=== PATIENT | male | born 1990 | race African-American/Black ===

== ENCOUNTER 2020-04-27 09:02 | Emergency (ER) | payer MEDICAID ==
[2020-04-27 09:14] VITALS: BP 170/98
--- NOTE | 2020-04-27 10:05 | RADIOLOGY REPORT (SQ) ---
EXAM DESCRIPTION: ANKLE LEFT COMPLETE IMAGES COMPLETED DATE/TIME: 04/27/2020 9:50 am REASON FOR STUDY: left ankle pain COMPARISON: None. NUMBER OF VIEWS: Three views. TECHNIQUE: AP, lateral, and oblique without weight bearing radiographic images acquired of the left ankle. LIMITATIONS: None. FINDINGS: MINERALIZATION: Normal. BONES: No acute fracture or dislocation. No worrisome bone lesions. Mild degenerative changes are pre sent at the talonavicular joint. JOINTS: No effusions. SOFT TISSUES: There is mild soft tissue swelling about the ankle. No radiopaque foreign body. OTHER: No other significant finding. IMPRESSION: Mild soft tissue swelling about the ankle without underlying fracture. TECHNICAL DOCUMENTATION: JOB ID: [id number] 2010 [employer]- All Rights Reserved Reading location - IP/workstation name: [email or web address]
[2020-04-27] MEDS ORDERED: HYDROCODONE/ACETAMINOPHEN 5-325 MG TABLET PO ONE (10:20)
[2020-04-27] MEDS ORDERED: IBUPROFEN 600 MG TABLET PO ONE (10:20)
--- NOTE | 2020-04-27 10:33 | ER Document Report ---
Entered by GLEN LIU SCRIBE 04/27/20 1008 Acting as scribe for:ALKA CASANOVA MD ED Extremity Problem, Lower - General Chief Complaint: Ankle Pain Stated Complaint: LEFT ANKLE PAIN Time Seen by Provider: 04/27/20 09:50 Primary Care Provider: JESS LEAVITT JR, MD [Primary Care Provider] - Follow up as needed Mode of Arrival: Ambulatory Information source: Patient Notes: This 29 year old male patient presents to the emergency department today with left ankle pain. Patient sleep walks frequently and today he was sleep walking and he rolled his left ankle. Patient denies any other injuries. 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 Review of Systems - Review of Systems Constitutional: No symptoms reported EENT: No symptoms reported Cardiovascular: No symptoms reported Respiratory: No symptoms reported Gastrointestinal: No symptoms reported Genitourinary: No symptoms reported Male Genitourinary: No symptoms reported Musculoskeletal: See HPI, Joint pain - left ankle Skin: No symptoms reported Hematologic/Lymphatic: No symptoms reported Neurological/Psychological: No symptoms reported -: Yes All other systems reviewed and negative Physical Exam - Vital signs Vitals: Temp Pulse Resp BP Pulse Ox 98.5 F 108 H 16 170/98 H 96 04/27/20 09:10 04/27/20 09:10 04/27/20 09:10 04/27/20 09:10 04/27/20 09:10 - General General appearance: Appears well, Alert In distress: None - HEENT Head: Normocephalic, Atraumatic Eyes: Normal - Respiratory Respiratory status: No respiratory distress - Cardiovascular Rhythm: Regular - Abdominal Inspection: Normal Distension: No distension - Extremities General upper extremity: Normal inspection General lower extremity: Other - Left ankle is most tender to palpate just anterior and medial to the lateral malleolus. There is minimal tenderness is across the rest of the anterior ankle and no tenderness to the medial ankle. There is no tenderness to the proximal fifth metatarsal. - Neurological Neuro grossly intact: Yes Cognition: Normal - Psychological Associated symptoms: Normal affect, Normal mood - Skin Skin Temperature: Warm Skin Moisture: Dry Skin Color: Normal Course - Re-evaluation Re-evalutation: 04/27/20 13:51 The posterior splint was placed on the left ankle by the PCT. Patient was fitted with crutches. Splint fits well, provides stability and prevents the ankle from moving. He does ambulate adequately with crutches. - Vital Signs Vital signs: Temp Pulse Resp BP Pulse Ox 98.5 F 108 H 16 170/98 H 96 04/27/20 09:10 04/27/20 09:10 04/27/20 09:10 04/27/20 09:10 04/27/20 09:10 - Diagnostic Test Radiology reviewed: Image reviewed, Reports reviewed - Left ankle x-ray shows mild soft tissue swelling without fracture. Discharge - Discharge Clinical Impression: Sprain of left ankle Qualifiers: Encounter type: initial encounter Involved ligament of ankle: unspecified ligament Qualified Code(s): S93.402A - Sprain of unspecified ligament of left ankle, initial encounter Condition: Stable Disposition: HOME, SELF-CARE Additional Instructions: Sprained Ankle Your sprained ankle results from stretching or tearing of the ligaments which support the ankle. This usually results from twisting the foot inward and under. The ligaments will require time and protection in order to heal properly. Many ankle sprains are quite disabling, and should be taken se riously. The usual treatment for an ankle sprain is cold packs; protection with tape, splints, or wraps; elevation; and staying off the ankle for at least a day. As the ankle improves, you can walk IF it's not painful to bear weight. Sports are best postponed until healing is complete. More serious sprains usually require strengthening exercises after early healing. Your physician has assessed the seriousness of the ligament injury to your ankle. However, the treatment may change, depending on how your ankle progresses. If further exams were recommended, it is important that you follow through. Call the doctor if your foot becomes numb, painful, or severely swollen. Keep the splint clean and dry. Elevate your foot above your heart as much as possible for the next few days. Use ice packs on the most painful area of your ankle off and on for the next 2 to 3 days. Take Tylenol and ibuprofen for pain if needed. Use the crutches to avoid weight-bearing for the next few days. When the ankle feels okay to stand and weight-bear, then get a reusable type ankle splint from [facility] to provide support until your ankle fully heals. Follow-up with your primary care provider if not improving. RETURN TO THE EMERGENCY ROOM IF ANY NEW OR WORSENING SYMPTOMS. Referrals: JESS LEAVITT JR, MD [Primary Care Provider] - Follow up as needed I personally performed the services described in the documentation, reviewed and edited the documentation which was dictated to the scribe in my presence, and it accurately records my words and actions.
== END 2020-04-27 10:43 | disposition home or self-care (01) ==
LOC: ER 09:02
DX: S93.402A Sprain of unspecified ligament of left ankle, initial encounter (principal); M25.572 Pain in left ankle and joints of left foot; X50.9XXA Other and unspecified overexertion or strenuous movements or postures, initial encounter; Y93.89 Activity, other specified; F17.210 Nicotine dependence, cigarettes, uncomplicated; I10 Essential (primary) hypertension
CPT/HCPCS: 99283; 73610; 29515; J3490

== ENCOUNTER 2020-09-29 11:45 | Inpatient (IN) | payer MEDICAID ==
[2020-09-29] MEDS ORDERED: ACETAMINOPHEN 325 MG TABLET PO ONE (12:53)
--- NOTE | 2020-09-29 12:56 | ER Document Report ---
ED Medical Screen (RME) - General Chief Complaint: Fever Stated Complaint: FEVER,COUGH Time Seen by Provider: 09/29/20 12:53 Primary Care Provider: JESS LEAVITT JR, MD [Primary Care Provider] - Follow up as needed Notes: 30-year-old male with symptoms including cough, fevers, chills, shortness of breath. Exposed people who are positive for COVID-19, has not been tested yet. Past medical history of obesity and sleep apnea, denies medical history otherwise. 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 We placed him on oxygen and he increased to 91% on 4 L. I have greeted and performed a rapid initial assessment of this patient. A comprehensive ED assessment and evaluation of the patient, analysis of test results and completion of the medical decision making process will be conducted by additional ED providers. Doctor's Discharge - Discharge Referrals: JESS LEAVITT JR, MD [Primary Care Provider] - Follow up as needed
[2020-09-29 13:23] LABS: VENOUS BLOOD BASE EXCESS 7.3 mmol/L; VENOUS BLOOD HCO3 33.8 mmol/L (20-32); VENOUS BLOOD PCO2 53.9 mmHg (35-63); VENOUS BLOOD PH 7.42 (7.30-7.42)
[2020-09-29 13:25] LABS: ABSOLUTE BASOPHILS # (AUTO) 0.1 10^3/uL (0.0-0.2); ABSOLUTE LYMPHOCYTES (AUTO) 1.3 10^3/uL (0.5-4.7); ABSOLUTE MONOCYTES (AUTO) 0.5 10^3/uL (0.1-1.4); ABSOLUTE NEUT (AUTO) 3.8 10^3/uL (1.7-8.2); BASOPHILS % (AUTO) 1.1 % (0-2); HEMATOCRIT 47.7 % (37.9-51.0); HEMOGLOBIN 16.2 g/dL (13.5-17.0); MEAN CORPUSCULAR HEMOGLOBIN 31.6 pg (27.0-33.4); MEAN CORPUSCULAR VOLUME 93 fl (80-97); MONOCYTES % (AUTO) 8.1 % (3-13); PLATELET COUNT 279 10^3/uL (150-450); RED BLOOD COUNT 5.14 10^6/uL (4.35-5.55); RED CELL DISTRIBUTION WIDTH 13.2 % (11.5-14.0); SEGMENTED NEUTROPHILS % (AUTO) 67.8 % (42-78); TOTAL CELLS COUNTED % (AUTO) 100 %; WHITE BLOOD COUNT 5.6 10^3/uL (4.0-10.5)
[2020-09-29] MEDS ORDERED: DEXAMETHASONE SOD PHOS INJ 10 MG/1 ML VIAL IV ONE (13:40)
[2020-09-29 13:45] LABS: ALBUMIN 3.9 g/dL (3.5-5.0); ALKALINE PHOSPHATASE 70 U/L (38-126); ANION GAP 5 (5-19); ASPARTATE AMINO TRANSFERASE 104 U/L (17-59); BILIRUBIN,DIRECT 0.3 mg/dL (0.0-0.4); BILIRUBIN,TOTAL 0.7 mg/dL (0.2-1.3); BLOOD UREA NITROGEN 7 mg/dL (7-20); CALCIUM 8.4 mg/dL (8.4-10.2); CARBON DIOXIDE 36 mmol/L (22-30); CHLORIDE 93 mmol/L (98-107); GLUCOSE 136 mg/dL (75-110); POTASSIUM 4.1 mmol/L (3.6-5.0); TOTAL PROTEIN 7.6 g/dL (6.3-8.2)
--- NOTE | 2020-09-29 13:57 | RADIOLOGY REPORT (SQ) ---
EXAM DESCRIPTION: CHEST SINGLE VIEW IMAGES COMPLETED DATE/TIME: 09/29/2020 1:49 pm REASON FOR STUDY: hypoxia, fever COMPARISON: None. EXAM PARAMETERS: NUMBER OF VIEWS: One view. TECHNIQUE: Single frontal radiographic view of the chest acquired. RADIATION DOSE: NA LIMITATIONS: None. FINDINGS: LUNGS AND PLEURA: Bibasilar infiltrates consistent with pneumonia. There is patchy airspa ce disease in the right perihilar region as well. MEDIASTINUM AND HILAR STRUCTURES: No masses. Contour normal. HEART AND VASCULAR STRUCTURES: Heart normal in size. Normal vasculature. BONES: No acute findings. HARDWARE: None in the chest. OTHER: No other significant finding. IMPRESSION: Patchy bilateral airspace disease consistent with multifocal pneumonia. Findings are douglas spicious for viral pneumonitis. COMMENT: Commonly reported imaging features of COVID-19 pneumonia are present. Other processes suc h as influenza pneumonia and organizing pneumonia, as can be seen with drug toxicity and connective t issue disease, can cause a similar imaging pattern. [facility] TECHNICAL DOCUMENTATION: JOB ID: [id number] [employer]- All Rights Reserved Reading location - IP/workstation name: [email or web address]
[2020-09-29] MEDS ORDERED: CEFTRIAXONE 1 GM/D5W RTU 1 GM/50 ML RTUPB IV ONE (14:23)
[2020-09-29] MEDS ORDERED: AZITHROMYCIN INJ 500 MG VIAL IV ONE (14:24)
--- NOTE | 2020-09-29 14:29 | ER Document Report ---
ED General - General Chief Complaint: Shortness Of Breath Stated Complaint: FEVER,COUGH Time Seen by Provider: 09/29/20 12:53 Notes: Patient is a 30-year-old male who comes emergency department for sick symptoms including fevers, chills, cough, shortness of breath. He also has had some intermittent diarrhea. He denies abdominal pain, vomiting, chest pain, headache. Patient was exposed to his who was positive for COVID-19 over the past 2 weeks. Patient has not been tested for COVID-19. Patient denies smoking. Past medical history includes obesity, sleep apnea on CPAP, hypertension, congenital hip dysplasia and surgical repair. He denies medical history otherwise. He denies recreational drugs. 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 - Immunizations Immunizations up to date: Yes Hx Diphtheria, Pertussis, Tetanus Vaccination: Yes Review of Systems - Review of Systems Constitutional: See HPI EENT: No symptoms reported Cardiovascular: No symptoms reported Respiratory: See HPI Gastrointestinal: No symptoms reported Genitourinary: No symptoms reported Male Genitourinary: No symptoms reported Musculoskeletal: No symptoms reported Skin: No symptoms reported Hematologic/Lymphatic: No symptoms reported Neurological/Psychological: No symptoms reported Physical Exam - Vital signs Vitals: Pulse Resp BP Pulse Ox 124 H 30 H 130/59 H 75 L 09/29/20 12:26 09/29/20 12:26 09/29/20 12:26 09/29/20 12:26 - Notes Notes: GENERAL: Alert, interacts well. HEAD: Normocephalic, atraumatic. EYES: Pupils equal, round, and reactive to light. Extraocular movements intact. ENT: Oral mucosa moist, tongue midline. Oropharynx unremarkable. Airway patent. NECK: Full range of motion. Supple. Trachea midline. No lymphadenopathy. LUNGS: Decreased breath sounds throughout, no overt rales, wheezes, or rhonchi. No respiratory distress. HEART: Regular rate and rhythm. No murmur ABDOMEN: Soft, non-tender. Non-distended. EXTREMITIES: Moves all 4 extremities spontaneously. No edema, normal radial and dorsalis pedis pulses bilaterally. No cyanosis. BACK: no cervical, thoracic, lumbar midline tenderness. No saddle anesthesia, normal distal neurovascular exam. Moves all extremities in full range of motion. NEUROLOGICAL: Alert and oriented x3. Normal speech. Cranial nerves II through X II grossly intact. Strength 5/5 in all extremities. PSYCH: Normal affect, normal mood. SKIN: Warm, dry, normal turgor. No rashes or lesions noted. Course - Re-evaluation Re-evalutation: I saw the patient in triage, patient was noted to be febrile, tachycardic, hypoxic although generally well-appearing otherwise. He is able to speak in full sentences without signs of respiratory distress. Eyes clinical suspicion based on his exposure is COVID-19 pneumonia. Patient was immediately placed in room, placed on 4 L nasal cannula and monitoring. He was given Tylenol. Tachycardia improved, hypoxia resolved, on reevaluation patient is well- appearing and alert. Chest x-ray at bedside appears to show multifocal pneumonia. CBC, chemistry unremarkable, urinalysis unremarkable, lactic acid is not elevated. Patient is given given Decadron, started on antibiotics. He is maintaining good oxygen saturation on 4 L nasal cannula unless he falls asleep, he has significant sleep apnea. Because of patient's oxygen requirement with multifocal pneumonia patient will require hospitalization. Discussed with patient, he states understanding and agreement. Discussed with Dr. Jackson, hospitalist, patient accepted full admission. - Vital Signs Vital signs: Temp Pulse Resp BP Pulse Ox 101 F H 96 34 H 106/78 91 L 09/29/20 17:24 09/29/20 17:24 09/29/20 17:24 09/29/20 17:05 09/29/20 17:24 - Laboratory Results Result Diagrams: 09/29/20 12:56 09/29/20 12:56 Laboratory Results Interpreted: 09/29/20 09/29/20 09/29/20 12:56 12:56 12:56 Fibrinogen 506 H D-Dimer 1.03 H VBG HCO3 33.8 H Sodium 134.2 L Chloride 93 L Carbon Dioxide 36 H Glucose 136 H AST 104 H Lactate Dehydrogenase C-Reactive Protein 09/29/20 12:56 Fibrinogen D-Dimer VBG HCO3 Sodium Chloride Carbon Dioxide Glucose AST Lactate Dehydrogenase 464 H C-Reactive Protein 34.6 H Critical Laboratory Results Reviewed: No Critical Results - Radiology Results Critical Radiology Results Reviewed: No Critical Results - EKG Interpretation by Me Additional EKG results interpreted by me: EKG shows sinus tachycardia at a rate of 119, normal axis, no T wave inversions or ST segment changes in consecutive leads, QTC 451. Discharge - Discharge Clinical Impression: Pneumonia due to COVID-19 virus, Hypoxia, Morbid obesity Fever Qualifiers: Fever type: unspecified Qualified Code(s): R50.9 - Fever, unspecified Condition: Stable Disposition: ADMITTED INPATIENT Admitting Provider: Demian (Hospitalist) Unit Admitted: Medical Floor
--- NOTE | 2020-09-29 14:49 | EKG REPORT ---
SEVERITY:- ABNORMAL ECG - SINUS TACHYCARDIA LEFT ATRIAL ABNORMALITY : Confirmed by: Deepa White 29-Sep-2020 14:48:52
[2020-09-29] MEDS ORDERED: OXYCODONE-ACETAMINOPHEN 5-325 MG TABLET PO PRN (16:16)
[2020-09-29] MEDS ORDERED: ZOLPIDEM TARTRATE 5 MG TABLET PO PRN (16:16)
[2020-09-29] MEDS ORDERED: PROMETHAZINE HCL INJ 25 MG/1 ML VIAL IV PRN (16:16)
[2020-09-29] MEDS ORDERED: ONDANSETRON 4 MG TAB.RAPDIS PO PRN (16:16)
[2020-09-29] MEDS ORDERED: MAGNESIUM HYDROXIDE SUSP 30 ML UDCUP PO PRN (16:16)
[2020-09-29] MEDS ORDERED: ONDANSETRON HCL INJ/PF 4 MG/2 ML SDV IV PRN (16:16)
[2020-09-29] MEDS ORDERED: IPRATROPIUM/ALBUTEROL 0.5-2.5 MG/3 ML AMPUL NEB PRN (16:16)
[2020-09-29] MEDS ORDERED: LABETALOL HCL INJ 20 MG/4 ML DISP.SYRIN IV PRN (16:26)
[2020-09-29 16:44] LABS: INTERNATIONAL RATION (INR) 1.04; PROTHROMBIN TIME 13.8 SEC (11.4-15.4)
[2020-09-29 16:45] LABS: FIBRINOGEN 506 mg/dL (209-497); PARTIAL THROMBOPLASTIN TIME 35.3 SEC (23.5-35.8)
[2020-09-29 16:48] LABS: D-DIMER 1.03 ug/mL (0.00-0.50)
[2020-09-29 16:53] LABS: C-REACTIVE PROTEIN 34.6 mg/L (<10.0)
--- NOTE | 2020-09-29 17:37 | PDOC H&P ---
History of Present Illness Admission Date/PCP: 09/29/20 15:52 SHAHRIAR CLIFFORD MD History of Present Illness: YOLIS NOLAN is a 30 year old male past medical history of morbid obesity, tobacco abuse, obstructive sleep apnea presenting to ED complaining of fever, chills, cough, shortness of breath of 1 week duration, possible exposure is his who had COVID-19 2 weeks ago, denies any headache, nausea, vomiting, diarrhea, chest pain, abdominal pain, constipation, loss of smell, loss of taste, or any urinary symptoms. In ED was noted to be hypoxic on room air, with chest x-ray showing patchy bilateral airspace disease consistent with multifocal pneumonia, COVID-19 serology positive. Hospitalist consulted for admission. 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 Social History Smoking Status: Current Every Day Smoker Family History Family History: Reviewed & Not Pertinent Parental Family History Reviewed: Yes Children Family History Reviewed: Yes Sibling(s) Family History Reviewed.: Yes Medication/Allergy Allergies/Adverse Reactions: No Known Allergies Allergy (Verified 09/29/20 13:06) Review of Systems Review of Systems: as per hpi Physical Exam Vital Signs: Temp Pulse Resp BP Pulse Ox 103 F H 126 H 29 H 149/86 H 92 09/29/20 13:06 09/29/20 13:06 09/29/20 15:00 09/29/20 15:00 09/29/20 15:00 Intake & Output 09/28/20 09/29/20 09/30/20 06:59 06:59 06:59 Intake Total 50 Balance 50 Weight 182.3 kg General appearance: PRESENT: morbidly obese Head exam: PRESENT: atraumatic, normocephalic Neck exam: ABSENT: carotid bruit, JVD, lymphadenopathy, thyromegaly Respiratory exam: PRESENT: crackles, symmetrical. ABSENT: rales, rhonchi, wheezes GI/Abdominal exam: PRESENT: normal bowel sounds, soft. ABSENT: distended, guarding, mass, organolmegaly, rebound, tenderness Extremities exam: PRESENT: full ROM. ABSENT: calf tenderness, clubbing, pedal edema Neurological exam: PRESENT: alert, awake, oriented to person, oriented to place, oriented to time, oriented to situation, CN II-XII grossly intact. ABSENT: motor sensory deficit Results Laboratory Results: 09/29/20 12:56 09/29/20 12:56 09/29/20 09/29/20 09/29/20 12:56 12:56 12:56 WBC 5.6 RBC 5.14 Hgb 16.2 Hct 47.7 MCV 93 MCH 31.6 MCHC 34.0 RDW 13.2 Plt Count 279 Seg Neutrophils % 67.8 VBG pH 7.42 VBG pCO2 53.9 VBG HCO3 33.8 H VBG Base Excess 7.3 Sodium 134.2 L Potassium 4.1 Chloride 93 L Carbon Dioxide 36 H Anion Gap 5 BUN 7 Creatinine 1.13 Est GFR ( Amer) > 60 Glucose 136 H Lactic Acid Calcium 8.4 Ferritin Total Bilirubin 0.7 AST 104 H Alkaline Phosphatase 70 C-Reactive Protein Total Protein 7.6 Albumin 3.9 09/29/20 09/29/20 09/29/20 12:56 12:56 15:40 WBC RBC Hgb Hct MCV MCH MCHC RDW Plt Count Seg Neutrophils % VBG pH VBG pCO2 VBG HCO3 VBG Base Excess Sodium Potassium Chloride Carbon Dioxide Anion Gap BUN Creatinine Est GFR ( Amer) Glucose Lactic Acid 1.2 Cancelled Calcium Ferritin 244.00 Total Bilirubin AST Alkaline Phosphatase C-Reactive Protein 34.6 H Total Protein Albumin Impressions: Chest X-Ray 09/29/20 12:54 IMPRESSION: Patchy bilateral airspace disease consistent with multifocal pneumonia. Findings are suspicious for viral pneumonitis. Assessment and Plan - Diagnosis (1) Acute respiratory failure with hypoxia Is this a current diagnosis for this admission?: Yes Plan: Most likely due to COVID-19 pneumonia. Complaining of shortness of breath, fever and chills. Noted to be hypoxic on room air on presentation. Chest x-ray positive for multifocal pneumonia. Serology positive for COVID-19. Admit to IMCU, supplemental oxygen, duo nebs, as needed BiPAP, empiric broad- spectrum IV antibiotics, dexamethasone, weight-based anticoagulation, incentive spirometry, flutter valve, ivermectin, remdesivir. Patient refuses convalescent plasma. (2) Pneumonia due to COVID-19 virus Is this a current diagnosis for this admission?: Yes Plan: Plan as per #1. (3) Obstructive sleep apnea Is this a current diagnosis for this admission?: Yes Plan: Uses home CPAP. Nocturnal CPAP. Weight loss recommended. (4) Tobacco abuse Is this a current diagnosis for this admission?: Yes Plan: Current daily smoker. Counseled on quitting. NicoDerm patch will be provided. (5) Morbid obesity Is this a current diagnosis for this admission?: Yes Plan: BMI 54.5. Diet and lifestyle modification recommended. Will obtain TSH. Likely candidate for bariatric intervention. - Time Time Spent with patient: 35 or more minutes Anticipated Discharge Disposition: Home, Self Care Anticipated Discharge Timeframe: within 72 hours
[2020-09-29] MEDS: ASCORBIC ACID 500 MG TABLET PO SCH (18:03)
[2020-09-29] MEDS: ACETAMINOPHEN 325 MG TABLET PO PRN (18:03)
[2020-09-29] MEDS: DOCUSATE SODIUM 100 MG CAPSULE PO SCH (18:03)
[2020-09-29] MEDS: ASPIRIN 81 MG TABLET, ENT COATED PO SCH (18:05)
[2020-09-29] MEDS: CHOLECALCIFEROL (D3) 1,000 UNIT (25 MCG) TABLET PO SCH (18:05)
[2020-09-29] MEDS: ZINC SULFATE 220 MG CAPSULE PO SCH (18:06)
[2020-09-30] MEDS: ENOXAPARIN SODIUM INJ 150 MG/1 ML DISP.SYRIN SUBCUT SCH ×4 (00:06→22:01)
[2020-09-30] MEDS: IVERMECTIN 3 MG TABLET PO SCH (00:06)
[2020-09-30] MEDS: FAMOTIDINE 20 MG TABLET PO SCH ×3 (00:06→22:01)
[2020-09-30 05:15] LABS: ABSOLUTE LYMPHOCYTES (AUTO) 0.9 10^3/uL (0.5-4.7); ABSOLUTE MONOCYTES (AUTO) 0.5 10^3/uL (0.1-1.4); ABSOLUTE NEUT (AUTO) 2.8 10^3/uL (1.7-8.2); BASOPHILS % (AUTO) 0.6 % (0-2); HEMATOCRIT 46.1 % (37.9-51.0); HEMOGLOBIN 15.6 g/dL (13.5-17.0); LYMPHOCYTES % (AUTO) 21.8 % (13-45); MEAN CORPUSCULAR HEMOGLOBIN 31.3 pg (27.0-33.4); MEAN CORPUSCULAR HGB CONC 33.7 g/dL (32.0-36.0); MEAN CORPUSCULAR VOLUME 93 fl (80-97); MONOCYTES % (AUTO) 11.5 % (3-13); PLATELET COUNT 304 10^3/uL (150-450); RED BLOOD COUNT 4.97 10^6/uL (4.35-5.55); RED CELL DISTRIBUTION WIDTH 13.5 % (11.5-14.0); SEGMENTED NEUTROPHILS % (AUTO) 66.1 % (42-78); TOTAL CELLS COUNTED % (AUTO) 100 %; WHITE BLOOD COUNT 4.3 10^3/uL (4.0-10.5)
[2020-09-30 05:29] LABS: ALBUMIN 3.7 g/dL (3.5-5.0); ALKALINE PHOSPHATASE 60 U/L (38-126); ANION GAP 7 (5-19); ASPARTATE AMINO TRANSFERASE 92 U/L (17-59); BILIRUBIN,DIRECT 0.3 mg/dL (0.0-0.4); BILIRUBIN,TOTAL 0.5 mg/dL (0.2-1.3); BLOOD UREA NITROGEN 12 mg/dL (7-20); CALCIUM 8.2 mg/dL (8.4-10.2); CARBON DIOXIDE 34 mmol/L (22-30); CHLORIDE 94 mmol/L (98-107); GLUCOSE 137 mg/dL (75-110); POTASSIUM 4.4 mmol/L (3.6-5.0); TOTAL PROTEIN 7.2 g/dL (6.3-8.2)
[2020-09-30] MEDS ORDERED: INFLUENZA QUAD (6MOS+) 2020-21 VAC 0.5 ML SYR IM ONE (08:00)
[2020-09-30] MEDS: ACETAMINOPHEN 325 MG TABLET PO PRN ×2 (08:12→17:19)
--- NOTE | 2020-09-30 11:44 | PDOC PROGRESS REPORT ---
Subjective Date:: 09/30/20 Subjective:: YOLIS NOLAN is a 30 year old male past medical history of morbid obesity, tobacco abuse, obstructive sleep apnea presenting to ED complaining of fever, chills, cough, shortness of breath of 1 week duration, possible exposure is his who had COVID-19 2 weeks ago, denies any headache, nausea, vomiting, diarrhea, chest pain, abdominal pain, constipation, loss of smell, loss of taste, or any urinary symptoms. In ED was noted to be hypoxic on room air, with chest x-ray showing patchy bilateral airspace disease consistent with multifocal pneumonia, COVID-19 serology positive. Hospitalist consulted for admission. 09/30/2020. No acute events overnight. Unfortunately patient not very compliant with his breathing treatment, refused to wear CPAP overnight, this morning on nasal cannula in no apparent distress, still complaining of shortness of breath, has not had any fever, denies any chest pain, nausea, vomiting, diarrhea, constipation. Reason For Visit: ACUTE RESPIRATORY FAILURE WITH HYPOXIA,COVID 19 Physical Exam Vital Signs: Temp Pulse Resp BP Pulse Ox 99.1 F 96 15 138/70 H 92 09/30/20 03:44 09/30/20 07:00 09/30/20 03:47 09/30/20 03:44 09/30/20 03:47 Intake & Output 09/29/20 09/30/20 10/01/20 06:59 06:59 06:59 Intake Total 2340 Output Total 425 Balance 1915 Weight 186.2 kg General appearance: PRESENT: no acute distress, morbidly obese, well-developed, well-nourished Head exam: PRESENT: atraumatic, normocephalic Respiratory exam: PRESENT: clear to auscultation ophelia, decreased breath sounds, other - Diminished air entry bilaterally. ABSENT: rales, rhonchi, wheezes Cardiovascular exam: PRESENT: RRR. ABSENT: diastolic murmur, rubs, systolic murmur GI/Abdominal exam: PRESENT: normal bowel sounds, soft. ABSENT: distended, guarding, mass, organolmegaly, rebound, tenderness Neurological exam: PRESENT: alert, awake, oriented to person, oriented to place, oriented to time, oriented to situation, CN II-XII grossly intact. ABSENT: motor sensory deficit Results Laboratory Results: 09/30/20 04:07 09/30/20 04:07 09/29/20 09/29/20 09/29/20 12:56 12:56 12:56 WBC 5.6 RBC 5.14 Hgb 16.2 Hct 47.7 MCV 93 MCH 31.6 MCHC 34.0 RDW 13.2 Plt Count 279 Seg Neutrophils % 67.8 VBG pH 7.42 VBG pCO2 53.9 VBG HCO3 33.8 H VBG Base Excess 7.3 Sodium 134.2 L Potassium 4.1 Chloride 93 L Carbon Dioxide 36 H Anion Gap 5 BUN 7 Creatinine 1.13 Est GFR ( Amer) > 60 Glucose 136 H Lactic Acid Calcium 8.4 Ferritin Total Bilirubin 0.7 AST 104 H Alkaline Phosphatase 70 C-Reactive Protein Total Protein 7.6 Albumin 3.9 Blood Type Antibody Screen 09/29/20 09/29/20 09/29/20 12:56 12:56 15:40 WBC RBC Hgb Hct MCV MCH MCHC RDW Plt Count Seg Neutrophils % VBG pH VBG pCO2 VBG HCO3 VBG Base Excess Sodium Potassium Chloride Carbon Dioxide Anion Gap BUN Creatinine Est GFR ( Amer) Glucose Lactic Acid 1.2 Cancelled Calcium Ferritin 244.00 Total Bilirubin AST Alkaline Phosphatase C-Reactive Protein 34.6 H Total Protein Albumin Blood Type Antibody Screen 09/29/20 09/29/20 09/29/20 18:30 18:30 21:53 WBC RBC Hgb Hct MCV MCH MCHC RDW Plt Count Seg Neutrophils % VBG pH VBG pCO2 VBG HCO3 VBG Base Excess Sodium Potassium Chloride Carbon Dioxide Anion Gap BUN Creatinine Est GFR ( Amer) Glucose Lactic Acid 1.6 2.1 Calcium Ferritin Total Bilirubin AST Alkaline Phosphatase C-Reactive Protein Total Protein Albumin Blood Type O POSITIVE Antibody Screen NEGATIVE 09/30/20 09/30/20 04:07 04:07 WBC 4.3 RBC 4.97 Hgb 15.6 Hct 46.1 MCV 93 MCH 31.3 MCHC 33.7 RDW 13.5 Plt Count 304 Seg Neutrophils % 66.1 VBG pH VBG pCO2 VBG HCO3 VBG Base Excess Sodium 134.7 L Potassium 4.4 Chloride 94 L Carbon Dioxide 34 H Anion Gap 7 BUN 12 Creatinine 1.00 Est GFR ( Amer) > 60 Glucose 137 H Lactic Acid Calcium 8.2 L Ferritin Total Bilirubin 0.5 AST 92 H Alkaline Phosphatase 60 C-Reactive Protein Total Protein 7.2 Albumin 3.7 Blood Type Antibody Screen Impressions: Chest X-Ray 09/29/20 12:54 IMPRESSION: Patchy bilateral airspace disease consistent with multifocal pneumonia. Findings are suspicious for viral pneumonitis. Assessment and Plan - Diagnosis (1) Acute respiratory failure with hypoxia Is this a current diagnosis for this admission?: Yes Plan: Improving. SPO2 WNL on 3 L nasal cannula. Most likely due to COVID-19 pneumonia. Complaining of shortness of breath, fever and chills on presentation. Noted to be hypoxic on room air on presentation. Chest x-ray positive for multifocal pneumonia. Serology positive for COVID-19. Continue supplemental oxygen, duo nebs, as needed BiPAP. Continue weight-based anticoagulation, incentive spirometry, flutter valve. Day 2 IV ceftriaxone. Day 2 IV azithromycin. Day 2 p.o. dexamethasone. Doses 1/2 ivermectin. Patient refused convalescent plasma. (2) Pneumonia due to COVID-19 virus Is this a current diagnosis for this admission?: Yes Plan: Plan as per #1. (3) Obstructive sleep apnea Is this a current diagnosis for this admission?: Yes Plan: Uses home CPAP. Nocturnal CPAP. Weight loss recommended. (4) Tobacco abuse Is this a current diagnosis for this admission?: Yes Plan: Current daily smoker. Counseled on quitting. NicoDerm patch will be provided. (5) Morbid obesity Is this a current diagnosis for this admission?: Yes Plan: BMI 54.5. Diet and lifestyle modification recommended. Will obtain TSH. Likely candidate for bariatric intervention. - Time Time Spent with patient: 35 or more minutes Anticipated Discharge Disposition: Home, Self Care Anticipated Discharge Timeframe: within 48 hours
[2020-09-30] MEDS: CEFTRIAXONE 1 GM/D5W RTU 1 GM/50 ML RTUPB IV SCH (12:19)
[2020-09-30] MEDS: DOCUSATE SODIUM 100 MG CAPSULE PO SCH ×3 (12:20→17:19)
[2020-09-30] MEDS: AZITHROMYCIN 250 MG TABLET PO SCH (12:20)
[2020-09-30] MEDS: CHOLECALCIFEROL (D3) 1,000 UNIT (25 MCG) TABLET PO SCH (12:20)
[2020-09-30] MEDS: DEXAMETHASONE SOD PHOS INJ 10 MG/1 ML VIAL IV SCH (12:20)
[2020-09-30] MEDS: ASCORBIC ACID 500 MG TABLET PO SCH ×2 (12:20→17:19)
[2020-09-30] MEDS: ASPIRIN 81 MG TABLET, ENT COATED PO SCH (12:20)
[2020-09-30] MEDS: ZINC SULFATE 220 MG CAPSULE PO SCH (12:21)
[2020-09-30 19:36] LABS: APPEARANCE,URINE CLEAR; BILIRUBIN,URINE NEGATIVE (NEGATIVE); COLOR,URINE YELLOW; GLUCOSE, URINE NEGATIVE (NEGATIVE); KETONES,URINE NEGATIVE (NEGATIVE); PROTEIN,URINE 100 mg/dL (NEGATIVE); URINE SPECIFIC GRAVITY 1.012; UROBILINOGEN,URINE NEGATIVE mg/dL (<2.0)
[2020-10-01 06:25] LABS: HEMATOCRIT 42.1 % (37.9-51.0); HEMOGLOBIN 14.4 g/dL (13.5-17.0); MEAN CORPUSCULAR HEMOGLOBIN 32.1 pg (27.0-33.4); MEAN CORPUSCULAR HGB CONC 34.3 g/dL (32.0-36.0); MEAN CORPUSCULAR VOLUME 93 fl (80-97); PLATELET COUNT 329 10^3/uL (150-450); RED CELL DISTRIBUTION WIDTH 13.7 % (11.5-14.0); WHITE BLOOD COUNT 5.3 10^3/uL (4.0-10.5)
[2020-10-01 07:04] LABS: ALBUMIN 3.5 g/dL (3.5-5.0); ALKALINE PHOSPHATASE 52 U/L (38-126); ASPARTATE AMINO TRANSFERASE 78 U/L (17-59); BILIRUBIN,DIRECT 0.3 mg/dL (0.0-0.4); BILIRUBIN,TOTAL 0.5 mg/dL (0.2-1.3); BLOOD UREA NITROGEN 11 mg/dL (7-20); CALCIUM 7.9 mg/dL (8.4-10.2); CARBON DIOXIDE 38 mmol/L (22-30); GLUCOSE 100 mg/dL (75-110)
[2020-10-01 07:06] LABS: POTASSIUM 3.8 mmol/L (3.6-5.0)
[2020-10-01 07:10] LABS: ANION GAP 5 (5-19); CHLORIDE 92 mmol/L (98-107)
[2020-10-01 08:24] LABS: APPEARANCE,URINE CLEAR; BILIRUBIN,URINE NEGATIVE (NEGATIVE); COLOR,URINE YELLOW; GLUCOSE, URINE NEGATIVE (NEGATIVE); KETONES,URINE NEGATIVE (NEGATIVE); LEUKOCYTE ESTERASE,URINE NEGATIVE (NEGATIVE); NITRITE,URINE NEGATIVE (NEGATIVE); PROTEIN,URINE 100 mg/dL (NEGATIVE)
[2020-10-01] MEDS: ACETAMINOPHEN 325 MG TABLET PO PRN ×2 (08:51→18:07)
[2020-10-01] MEDS ORDERED: DEXTROSE 40% GEL 15 GM TUBE PO PRN ×2 (09:39)
[2020-10-01] MEDS ORDERED: DEXTROSE 50%-WATER 25 GM/50 ML DISP.SYRIN IV PRN ×2 (09:39)
[2020-10-01] MEDS ORDERED: GLUCAGON,HUMAN RECOMB 1 MG INJ IM PRN (09:39)
--- NOTE | 2020-10-01 10:11 | PDOC PROGRESS REPORT ---
Subjective Date:: 10/01/20 Subjective:: YOLIS NOLAN is a 30 year old male past medical history of morbid obesity, tobacco abuse, obstructive sleep apnea presenting to ED complaining of fever, chills, cough, shortness of breath of 1 week duration, possible exposure is his who had COVID-19 2 weeks ago, denies any headache, nausea, vomiting, diarrhea, chest pain, abdominal pain, constipation, loss of smell, loss of taste, or any urinary symptoms. In ED was noted to be hypoxic on room air, with chest x-ray showing patchy bilateral airspace disease consistent with multifocal pneumonia, COVID-19 serology positive. Hospitalist consulted for admission. 09/30/2020. No acute events overnight. Unfortunately patient not very compliant with his breathing treatment, refused to wear CPAP overnight, this morning on nasal cannula in no apparent distress, still complaining of shortness of breath, has not had any fever, denies any chest pain, nausea, vomiting, diarrhea, constipation. 10/01/2020. No acute events overnight. Saw patient this morning, wearing his BiPAP, he denies any chest pain, shortness of breath, nausea, vomiting, diarrhea, constipation or any urinary symptoms. Patient has been febrile and is still dependent on supplemental oxygen. Reason For Visit: ACUTE RESPIRATORY FAILURE WITH HYPOXIA,COVID 19 Physical Exam Vital Signs: Temp Pulse Resp BP Pulse Ox 101.7 F H 98 18 128/65 H 91 L 10/01/20 08:30 10/01/20 08:30 10/01/20 08:13 10/01/20 04:26 10/01/20 08:30 Intake & Output 09/30/20 10/01/20 10/02/20 06:59 06:59 06:59 Intake Total 2340 4625 Output Total 425 1945 Balance 1915 2680 Weight 186.2 kg 185.9 kg General appearance: PRESENT: no acute distress, morbidly obese, well-developed, well-nourished Head exam: PRESENT: atraumatic, normocephalic Respiratory exam: PRESENT: clear to auscultation ophelia. ABSENT: rales, rhonchi, wheezes Cardiovascular exam: PRESENT: RRR. ABSENT: diastolic murmur, rubs, systolic murmur GI/Abdominal exam: PRESENT: normal bowel sounds, soft. ABSENT: distended, guarding, mass, organolmegaly, rebound, tenderness Extremities exam: PRESENT: full ROM. ABSENT: calf tenderness, clubbing, pedal edema Neurological exam: PRESENT: alert, awake, oriented to person, oriented to place, oriented to time, oriented to situation, CN II-XII grossly intact. ABSENT: motor sensory deficit Results Laboratory Results: 10/01/20 05:26 10/01/20 05:26 09/30/20 10/01/20 10/01/20 13:39 05:26 05:26 WBC 5.3 RBC 4.50 Hgb 14.4 Hct 42.1 MCV 93 MCH 32.1 MCHC 34.3 RDW 13.7 Plt Count 329 Sodium 135.1 L Potassium 3.8 Chloride 92 L Carbon Dioxide 38 H Anion Gap 5 BUN 11 Creatinine 0.88 Est GFR ( Amer) > 60 Glucose 100 Calcium 7.9 L Total Bilirubin 0.5 AST 78 H Alkaline Phosphatase 52 Total Protein 7.0 Albumin 3.5 TSH Urine Color YELLOW Urine Appearance CLEAR Urine pH 6.0 Ur Specific [place] 1.012 Urine Protein 100 H Urine Glucose (UA) NEGATIVE Urine Ketones NEGATIVE Urine Blood NEGATIVE Urine Nitrite Ur Leukocyte Esterase Urine WBC (Auto) Urine RBC (Auto) 1 10/01/20 10/01/20 05:26 06:10 WBC RBC Hgb Hct MCV MCH MCHC RDW Plt Count Sodium Potassium Chloride Carbon Dioxide Anion Gap BUN Creatinine Est GFR ( Amer) Glucose Calcium Total Bilirubin AST Alkaline Phosphatase Total Protein Albumin TSH 0.89 Urine Color YELLOW Urine Appearance CLEAR Urine pH 6.0 Ur Specific [place] 1.020 Urine Protein 100 H Urine Glucose (UA) NEGATIVE Urine Ketones NEGATIVE Urine Blood NEGATIVE Urine Nitrite NEGATIVE Ur Leukocyte Esterase NEGATIVE Urine WBC (Auto) 5 Urine RBC (Auto) 0 Impressions: Chest X-Ray 09/29/20 12:54 IMPRESSION: Patchy bilateral airspace disease consistent with multifocal pneumonia. Findings are suspicious for viral pneumonitis. Assessment and Plan - Diagnosis (1) Acute respiratory failure with hypoxia Is this a current diagnosis for this admission?: Yes Plan: Mild worsening of hypoxia. SPO2 WNL on 15 L nonrebreather. Most likely due to COVID-19 pneumonia. Complaining of shortness of breath, fever and chills on presentation. Noted to be hypoxic on room air on presentation. Chest x-ray positive for multifocal pneumonia. Serology positive for COVID-19. Continue supplemental oxygen, duo nebs, as needed BiPAP. Continue weight-based anticoagulation, incentive spirometry, flutter valve. Day 3 IV ceftriaxone. Day 3 IV azithromycin. Day 3 p.o. dexamethasone. Doses 2/2 ivermectin. Patient refused convalescent plasma. (2) Pneumonia due to COVID-19 virus Is this a current diagnosis for this admission?: Yes Plan: Plan as per #1. (3) Obstructive sleep apnea Is this a current diagnosis for this admission?: Yes Plan: Uses home CPAP. Nocturnal CPAP. Weight loss recommended. (4) Tobacco abuse Is this a current diagnosis for this admission?: Yes Plan: Current daily smoker. Counseled on quitting. NicoDerm patch will be provided. (5) Morbid obesity Is this a current diagnosis for this admission?: Yes Plan: BMI 54.5. Diet and lifestyle modification recommended. Will obtain TSH. Likely candidate for bariatric intervention. (6) Diabetes Qualifiers: Diabetes mellitus type: type 2 Is this a current diagnosis for this admission?: Yes Plan: New onset diabetes. Hemoglobin A1c 7.6%. Diabetic diet, basal, prandial and sliding scale insulin. Switch to p.o. oral hypoglycemics upon discharge. Diabetic education. - Time Time Spent with patient: 25-34 minutes Anticipated Discharge Disposition: Home, Self Care Anticipated Discharge Timeframe: within 72 hours
[2020-10-01] MEDS: INSULIN LISPRO 100 UNIT/ML 3 ML VIAL SUBCUT SCH ×3 (11:00→22:07)
[2020-10-01] MEDS: CEFTRIAXONE 1 GM/D5W RTU 1 GM/50 ML RTUPB IV SCH (12:23)
[2020-10-01] MEDS: ASCORBIC ACID 500 MG TABLET PO SCH ×2 (12:24→20:11)
[2020-10-01] MEDS: AZITHROMYCIN 250 MG TABLET PO SCH (12:24)
[2020-10-01] MEDS: ASPIRIN 81 MG TABLET, ENT COATED PO SCH (12:24)
[2020-10-01] MEDS: FAMOTIDINE 20 MG TABLET PO SCH ×2 (12:24→22:07)
[2020-10-01] MEDS: CHOLECALCIFEROL (D3) 1,000 UNIT (25 MCG) TABLET PO SCH (12:24)
[2020-10-01] MEDS: DEXAMETHASONE SOD PHOS INJ 10 MG/1 ML VIAL IV SCH (12:25)
[2020-10-01] MEDS: ENOXAPARIN SODIUM INJ 150 MG/1 ML DISP.SYRIN SUBCUT SCH ×2 (12:25→22:05)
[2020-10-01] MEDS: ZINC SULFATE 220 MG CAPSULE PO SCH (12:26)
[2020-10-01] MEDS: DOCUSATE SODIUM 100 MG CAPSULE PO SCH ×2 (12:33→18:08)
[2020-10-01 16:49] LABS: PARTIAL THROMBOPLASTIN TIME 42.3 SEC (23.5-35.8)
[2020-10-01 16:52] LABS: D-DIMER 1.23 ug/mL (0.00-0.50)
[2020-10-01] MEDS: IVERMECTIN 3 MG TABLET PO SCH (22:04)
[2020-10-02 06:35] LABS: ABSOLUTE MONOCYTES (AUTO) 0.5 10^3/uL (0.1-1.4); ABSOLUTE NEUT (AUTO) 2.2 10^3/uL (1.7-8.2); BASOPHILS % (AUTO) 1.1 % (0-2); HEMATOCRIT 44.2 % (37.9-51.0); HEMOGLOBIN 14.9 g/dL (13.5-17.0); LYMPHOCYTES % (AUTO) 27.7 % (13-45); MEAN CORPUSCULAR HEMOGLOBIN 31.4 pg (27.0-33.4); MEAN CORPUSCULAR HGB CONC 33.7 g/dL (32.0-36.0); MEAN CORPUSCULAR VOLUME 93 fl (80-97); MONOCYTES % (AUTO) 12.2 % (3-13); PLATELET COUNT 347 10^3/uL (150-450); RED BLOOD COUNT 4.74 10^6/uL (4.35-5.55); RED CELL DISTRIBUTION WIDTH 13.3 % (11.5-14.0); TOTAL CELLS COUNTED % (AUTO) 100 %; WHITE BLOOD COUNT 3.8 10^3/uL (4.0-10.5)
[2020-10-02 06:52] LABS: ALBUMIN 3.4 g/dL (3.5-5.0); ALKALINE PHOSPHATASE 54 U/L (38-126); ASPARTATE AMINO TRANSFERASE 75 U/L (17-59); BILIRUBIN,DIRECT 0.4 mg/dL (0.0-0.4); BILIRUBIN,TOTAL 0.6 mg/dL (0.2-1.3); BLOOD UREA NITROGEN 11 mg/dL (7-20); CALCIUM 8.3 mg/dL (8.4-10.2); CHOLESTEROL 137.42 mg/dL (0-200); GLUCOSE 113 mg/dL (75-110); POTASSIUM 4.3 mmol/L (3.6-5.0); TOTAL PROTEIN 6.6 g/dL (6.3-8.2); TRIGLYCERIDES 126 mg/dL (<150)
[2020-10-02 06:57] LABS: CARBON DIOXIDE 39 mmol/L (22-30); CHLORIDE 94 mmol/L (98-107)
[2020-10-02 07:01] LABS: ANION GAP 3 (5-19)
[2020-10-02 07:03] LABS: DIRECT LDL 103 mg/dL (<100)
[2020-10-02] MEDS: INSULIN LISPRO 100 UNIT/ML 3 ML VIAL SUBCUT SCH ×2 (08:00→21:37)
[2020-10-02] MEDS: DOCUSATE SODIUM 100 MG CAPSULE PO SCH ×3 (10:00→18:34)
--- NOTE | 2020-10-02 11:24 | PDOC PROGRESS REPORT ---
Subjective Date:: 10/02/20 Subjective:: YOLIS NOLAN is a 30 year old male past medical history of morbid obesity, tobacco abuse, obstructive sleep apnea presenting to ED complaining of fever, chills, cough, shortness of breath of 1 week duration, possible exposure is his who had COVID-19 2 weeks ago, denies any headache, nausea, vomiting, diarrhea, chest pain, abdominal pain, constipation, loss of smell, loss of taste, or any urinary symptoms. In ED was noted to be hypoxic on room air, with chest x-ray showing patchy bilateral airspace disease consistent with multifocal pneumonia, COVID-19 serology positive. Hospitalist consulted for admission. 09/30/2020. No acute events overnight. Unfortunately patient not very compliant with his breathing treatment, refused to wear CPAP overnight, this morning on nasal cannula in no apparent distress, still complaining of shortness of breath, has not had any fever, denies any chest pain, nausea, vomiting, diarrhea, constipation. 10/01/2020. No acute events overnight. Saw patient this morning, wearing his BiPAP, he denies any chest pain, shortness of breath, nausea, vomiting, diarrhea, constipation or any urinary symptoms. Patient has been febrile and is still dependent on supplemental oxygen. 10/02/2020. No acute events overnight. Patient very anxious to go home but unfortunately he is still on 15 L on Oxymizer, has not had any fever, denies any shortness of breath, chills, nausea, chest pain, diarrhea, constipation or any urinary symptoms. Reason For Visit: ACUTE RESPIRATORY FAILURE WITH HYPOXIA,COVID 19 Physical Exam Vital Signs: Temp Pulse Resp BP Pulse Ox 98.3 F 94 16 114/48 L 97 10/02/20 04:28 10/02/20 07:56 10/02/20 07:56 10/02/20 04:28 10/02/20 10:03 Intake & Output 10/01/20 10/02/20 10/03/20 06:59 06:59 06:59 Intake Total 4670 390 Output Total 1818 3422 Balance 2680 -2980 Weight 185.9 kg 164.6 kg General appearance: PRESENT: no acute distress, morbidly obese, well-developed, well-nourished Head exam: PRESENT: atraumatic, normocephalic Respiratory exam: PRESENT: clear to auscultation ophelia, tachypnea. ABSENT: rales, rhonchi, wheezes Cardiovascular exam: PRESENT: RRR. ABSENT: diastolic murmur, rubs, systolic murmur GI/Abdominal exam: PRESENT: normal bowel sounds, soft. ABSENT: distended, guarding, mass, organolmegaly, rebound, tenderness Neurological exam: PRESENT: alert, awake, oriented to person, oriented to place, oriented to time, oriented to situation, CN II-XII grossly intact. ABSENT: motor sensory deficit Results Laboratory Results: 10/02/20 05:58 10/02/20 05:58 10/02/20 10/02/20 05:58 05:58 WBC 3.8 L RBC 4.74 Hgb 14.9 Hct 44.2 MCV 93 MCH 31.4 MCHC 33.7 RDW 13.3 Plt Count 347 Seg Neutrophils % 59.0 Sodium 136.1 L Potassium 4.3 Chloride 94 L Carbon Dioxide 39 H Anion Gap 3 L BUN 11 Creatinine 0.74 Est GFR ( Amer) > 60 Glucose 113 H Calcium 8.3 L Total Bilirubin 0.6 AST 75 H Alkaline Phosphatase 54 Total Protein 6.6 Albumin 3.4 L Triglycerides 126 Cholesterol 137.42 LDL Cholesterol Direct 103 H VLDL Cholesterol 25.0 HDL Cholesterol 20 L Impressions: Chest X-Ray 09/29/20 12:54 IMPRESSION: Patchy bilateral airspace disease consistent with multifocal pneumonia. Findings are suspicious for viral pneumonitis. Assessment and Plan - Diagnosis (1) Acute respiratory failure with hypoxia Is this a current diagnosis for this admission?: Yes Plan: Mild worsening of hypoxia. SPO2 WNL on 15 L Oxymizer. Most likely due to COVID-19 pneumonia. Complaining of shortness of breath, fever and chills on presentation. Noted to be hypoxic on room air on presentation. Chest x-ray positive for multifocal pneumonia. Serology positive for COVID-19. Continue supplemental oxygen, duo nebs, as needed BiPAP. Continue weight-based anticoagulation, incentive spirometry, flutter valve. Day 4 IV ceftriaxone. Day 4 IV azithromycin. Day 4 p.o. dexamethasone. Doses 2/2 ivermectin. Patient refused convalescent plasma. (2) Pneumonia due to COVID-19 virus Is this a current diagnosis for this admission?: Yes Plan: Plan as per #1. (3) Obstructive sleep apnea Is this a current diagnosis for this admission?: Yes Plan: Uses home CPAP. Nocturnal CPAP. Weight loss recommended. (4) Tobacco abuse Is this a current diagnosis for this admission?: Yes Plan: Current daily smoker. Counseled on quitting. NicoDerm patch will be provided. (5) Morbid obesity Is this a current diagnosis for this admission?: Yes Plan: BMI 54.5. Diet and lifestyle modification recommended. Will obtain TSH. Likely candidate for bariatric intervention. (6) Diabetes Qualifiers: Diabetes mellitus type: type 2 Is this a current diagnosis for this admission?: Yes Plan: New onset diabetes. Hemoglobin A1c 7.6%. Diabetic diet, basal, prandial and sliding scale insulin. Switch to p.o. oral hypoglycemics upon discharge. Diabetic education. - Time Time Spent with patient: 25-34 minutes Anticipated Discharge Disposition: Home, Self Care Anticipated Discharge Timeframe: within 24 hours
[2020-10-02] MEDS: ASPIRIN 81 MG TABLET, ENT COATED PO SCH (12:27)
[2020-10-02] MEDS: AZITHROMYCIN 250 MG TABLET PO SCH (12:27)
[2020-10-02] MEDS: ASCORBIC ACID 500 MG TABLET PO SCH ×2 (12:27→18:34)
[2020-10-02] MEDS: DEXAMETHASONE SOD PHOS INJ 10 MG/1 ML VIAL IV SCH (12:27)
[2020-10-02] MEDS: CHOLECALCIFEROL (D3) 1,000 UNIT (25 MCG) TABLET PO SCH (12:27)
[2020-10-02] MEDS: FAMOTIDINE 20 MG TABLET PO SCH ×2 (12:27→21:38)
[2020-10-02] MEDS: CEFTRIAXONE 1 GM/D5W RTU 1 GM/50 ML RTUPB IV SCH (12:28)
[2020-10-02] MEDS: ENOXAPARIN SODIUM INJ 150 MG/1 ML DISP.SYRIN SUBCUT SCH ×2 (12:35→21:38)
[2020-10-02] MEDS: ZINC SULFATE 220 MG CAPSULE PO SCH (12:35)
[2020-10-03 05:37] LABS: HEMATOCRIT 47.7 % (37.9-51.0); HEMOGLOBIN 15.9 g/dL (13.5-17.0); MEAN CORPUSCULAR HEMOGLOBIN 31.2 pg (27.0-33.4); MEAN CORPUSCULAR HGB CONC 33.3 g/dL (32.0-36.0); MEAN CORPUSCULAR VOLUME 94 fl (80-97); PLATELET COUNT 354 10^3/uL (150-450); RED BLOOD COUNT 5.09 10^6/uL (4.35-5.55); RED CELL DISTRIBUTION WIDTH 13.2 % (11.5-14.0)
[2020-10-03 06:04] LABS: ALBUMIN 3.3 g/dL (3.5-5.0); ALKALINE PHOSPHATASE 46 U/L (38-126); ANION GAP 5 (5-19); ASPARTATE AMINO TRANSFERASE 63 U/L (17-59); BILIRUBIN,DIRECT 0.2 mg/dL (0.0-0.4); BILIRUBIN,TOTAL 0.5 mg/dL (0.2-1.3); BLOOD UREA NITROGEN 12 mg/dL (7-20); CALCIUM 8.7 mg/dL (8.4-10.2); CARBON DIOXIDE 36 mmol/L (22-30); CHLORIDE 97 mmol/L (98-107); GLUCOSE 107 mg/dL (75-110); POTASSIUM 4.6 mmol/L (3.6-5.0); TOTAL PROTEIN 6.6 g/dL (6.3-8.2)
[2020-10-03 07:18] LABS: APPEARANCE,URINE CLEAR; BILIRUBIN,URINE NEGATIVE (NEGATIVE); COLOR,URINE YELLOW; GLUCOSE, URINE NEGATIVE (NEGATIVE); KETONES,URINE NEGATIVE (NEGATIVE); LEUKOCYTE ESTERASE,URINE NEGATIVE (NEGATIVE); NITRITE,URINE NEGATIVE (NEGATIVE); PROTEIN,URINE 100 mg/dL (NEGATIVE); URINE SPECIFIC GRAVITY 1.016
[2020-10-03] MEDS: INSULIN LISPRO 100 UNIT/ML 3 ML VIAL SUBCUT SCH ×6 (09:20→21:28)
[2020-10-03] MEDS: DOCUSATE SODIUM 100 MG CAPSULE PO SCH ×3 (10:00→17:18)
[2020-10-03] MEDS: ASPIRIN 81 MG TABLET, ENT COATED PO SCH (12:35)
[2020-10-03] MEDS: CEFTRIAXONE 1 GM/D5W RTU 1 GM/50 ML RTUPB IV SCH (12:35)
[2020-10-03] MEDS: DEXAMETHASONE SOD PHOS INJ 10 MG/1 ML VIAL IV SCH (12:35)
[2020-10-03] MEDS: ASCORBIC ACID 500 MG TABLET PO SCH ×2 (12:35→17:20)
[2020-10-03] MEDS: FAMOTIDINE 20 MG TABLET PO SCH ×2 (12:35→21:01)
[2020-10-03] MEDS: CHOLECALCIFEROL (D3) 1,000 UNIT (25 MCG) TABLET PO SCH (12:36)
[2020-10-03] MEDS: ZINC SULFATE 220 MG CAPSULE PO SCH (12:36)
[2020-10-03] MEDS: AZITHROMYCIN 250 MG TABLET PO SCH (12:36)
--- NOTE | 2020-10-03 13:06 | PDOC PROGRESS REPORT ---
Subjective Date:: 10/03/20 Subjective:: YOLIS NOLAN is a 30 year old male past medical history of morbid obesity, tobacco abuse, obstructive sleep apnea presenting to ED complaining of fever, chills, cough, shortness of breath of 1 week duration, possible exposure is his who had COVID-19 2 weeks ago, denies any headache, nausea, vomiting, diarrhea, chest pain, abdominal pain, constipation, loss of smell, loss of taste, or any urinary symptoms. In ED was noted to be hypoxic on room air, with chest x-ray showing patchy bilateral airspace disease consistent with multifocal pneumonia, COVID-19 serology positive. Hospitalist consulted for admission. 09/30/2020. No acute events overnight. Unfortunately patient not very compliant with his breathing treatment, refused to wear CPAP overnight, this morning on nasal cannula in no apparent distress, still complaining of shortness of breath, has not had any fever, denies any chest pain, nausea, vomiting, diarrhea, constipation. 10/01/2020. No acute events overnight. Saw patient this morning, wearing his BiPAP, he denies any chest pain, shortness of breath, nausea, vomiting, diarrhea, constipation or any urinary symptoms. Patient has been febrile and is still dependent on supplemental oxygen. 10/02/2020. No acute events overnight. Patient very anxious to go home but unfortunately he is still on 15 L on Oxymizer, has not had any fever, denies any shortness of breath, chills, nausea, chest pain, diarrhea, constipation or any urinary symptoms. 10/03/2020. No acute events overnight. Unfortunately patient is still on Oxymizer, very anxious to leave the hospital, has not been very pleasant with nursing staff, patient was ambulated twice to see if it would be safe for him to go to home with supplemental oxygen but unfortunately he drops to 80s and 70s on nasal cannula. Patient denies any fever, chills, nausea, vomiting, diarrhea, constipation or any urinary symptoms. Reason For Visit: ACUTE RESPIRATORY FAILURE WITH HYPOXIA,COVID 19 Physical Exam Vital Signs: Temp Pulse Resp BP Pulse Ox 98.4 F 80 19 135/63 H 93 10/03/20 07:45 10/03/20 07:00 10/03/20 04:02 10/03/20 04:02 01/08/21 11:09 Intake & Output 10/02/20 10/03/20 10/04/20 06:59 06:59 06:59 Intake Total 390 1150 Output Total 3370 4200 Balance -2980 -3050 Weight 164.6 kg 184.3 kg General appearance: PRESENT: no acute distress, morbidly obese, well-developed, well-nourished Head exam: PRESENT: atraumatic, normocephalic Respiratory exam: PRESENT: decreased breath sounds. ABSENT: rales, rhonchi, wheezes Cardiovascular exam: PRESENT: RRR. ABSENT: diastolic murmur, rubs, systolic murmur GI/Abdominal exam: PRESENT: normal bowel sounds, soft. ABSENT: distended, guarding, mass, organolmegaly, rebound, tenderness Neurological exam: PRESENT: alert, awake, oriented to person, oriented to place, oriented to time, oriented to situation, CN II-XII grossly intact. ABSENT: motor sensory deficit Results Laboratory Results: 10/03/20 04:20 10/03/20 05:33 10/03/20 10/03/20 10/03/20 04:20 05:33 06:00 WBC 4.0 RBC 5.09 Hgb 15.9 Hct 47.7 MCV 94 MCH 31.2 MCHC 33.3 RDW 13.2 Plt Count 354 Sodium 138.0 Potassium 4.6 Chloride 97 L Carbon Dioxide 36 H Anion Gap 5 BUN 12 Creatinine 0.68 Est GFR ( Amer) > 60 Glucose 107 Calcium 8.7 Total Bilirubin 0.5 AST 63 H Alkaline Phosphatase 46 Total Protein 6.6 Albumin 3.3 L Urine Color YELLOW Urine Appearance CLEAR Urine pH 7.0 Ur Specific [place] 1.016 Urine Protein 100 H Urine Glucose (UA) NEGATIVE Urine Ketones NEGATIVE Urine Blood NEGATIVE Urine Nitrite NEGATIVE Ur Leukocyte Esterase NEGATIVE Urine WBC (Auto) 0 Urine RBC (Auto) 0 Impressions: Chest X-Ray 09/29/20 12:54 IMPRESSION: Patchy bilateral airspace disease consistent with multifocal pneumonia. Findings are suspicious for viral pneumonitis. Assessment and Plan - Diagnosis (1) Acute respiratory failure with hypoxia Is this a current diagnosis for this admission?: Yes Plan: Mild worsening of hypoxia. SPO2 WNL on 15 L Oxymizer. Most likely due to COVID-19 pneumonia. Complaining of shortness of breath, fever and chills on presentation. Noted to be hypoxic on room air on presentation. Chest x-ray positive for multifocal pneumonia. Serology positive for COVID-19. Continue supplemental oxygen, duo nebs, as needed BiPAP. Continue weight-based anticoagulation, incentive spirometry, flutter valve. Day 5 IV ceftriaxone. Day 5 IV azithromycin. Day 5 p.o. dexamethasone. Doses 2/2 ivermectin. Patient refused convalescent plasma. (2) Pneumonia due to COVID-19 virus Is this a current diagnosis for this admission?: Yes Plan: Plan as per #1. (3) Obstructive sleep apnea Is this a current diagnosis for this admission?: Yes Plan: Uses home CPAP. Nocturnal CPAP. Weight loss recommended. (4) Tobacco abuse Is this a current diagnosis for this admission?: Yes Plan: Current daily smoker. Counseled on quitting. NicoDerm patch will be provided. (5) Morbid obesity Is this a current diagnosis for this admission?: Yes Plan: BMI 54.5. Diet and lifestyle modification recommended. Will obtain TSH. Likely candidate for bariatric intervention. (6) Diabetes Qualifiers: Diabetes mellitus type: type 2 Is this a current diagnosis for this admission?: Yes Plan: New onset diabetes. Hemoglobin A1c 7.6%. Diabetic diet, basal, prandial and sliding scale insulin. Switch to p.o. oral hypoglycemics upon discharge. Diabetic education. - Time Time Spent with patient: 35 or more minutes Anticipated Discharge Disposition: Home, Self Care Anticipated Discharge Timeframe: within 24 hours
[2020-10-03] MEDS: ENOXAPARIN SODIUM INJ 150 MG/1 ML DISP.SYRIN SUBCUT SCH ×2 (13:21→21:04)
[2020-10-03 17:07] LABS: D-DIMER 0.82 ug/mL (0.00-0.50)
[2020-10-04 05:19] LABS: ABSOLUTE BASOPHILS # (AUTO) 0.1 10^3/uL (0.0-0.2); ABSOLUTE MONOCYTES (AUTO) 0.8 10^3/uL (0.1-1.4); EOSINOPHILS % (AUTO) 0.2 % (0-6); HEMATOCRIT 46.2 % (37.9-51.0); HEMOGLOBIN 15.6 g/dL (13.5-17.0); LYMPHOCYTES % (AUTO) 34.5 % (13-45); MEAN CORPUSCULAR HEMOGLOBIN 31.4 pg (27.0-33.4); MEAN CORPUSCULAR HGB CONC 33.7 g/dL (32.0-36.0); MEAN CORPUSCULAR VOLUME 93 fl (80-97); MONOCYTES % (AUTO) 14.2 % (3-13); PLATELET COUNT 428 10^3/uL (150-450); RED BLOOD COUNT 4.96 10^6/uL (4.35-5.55); RED CELL DISTRIBUTION WIDTH 13.3 % (11.5-14.0); SEGMENTED NEUTROPHILS % (AUTO) 50.1 % (42-78); TOTAL CELLS COUNTED % (AUTO) 100 %; WHITE BLOOD COUNT 5.9 10^3/uL (4.0-10.5)
[2020-10-04 05:21] LABS: ALBUMIN 3.4 g/dL (3.5-5.0); ALKALINE PHOSPHATASE 48 U/L (38-126); ANION GAP 7 (5-19); ASPARTATE AMINO TRANSFERASE 79 U/L (17-59); BILIRUBIN,DIRECT 0.3 mg/dL (0.0-0.4); BILIRUBIN,TOTAL 0.6 mg/dL (0.2-1.3); BLOOD UREA NITROGEN 13 mg/dL (7-20); CALCIUM 8.9 mg/dL (8.4-10.2); CARBON DIOXIDE 31 mmol/L (22-30); CHLORIDE 101 mmol/L (98-107); GLUCOSE 106 mg/dL (75-110); POTASSIUM 4.5 mmol/L (3.6-5.0); TOTAL PROTEIN 6.7 g/dL (6.3-8.2)
[2020-10-04] MEDS: INSULIN LISPRO 100 UNIT/ML 3 ML VIAL SUBCUT SCH (09:44)
[2020-10-04] MEDS: ASPIRIN 81 MG TABLET, ENT COATED PO SCH (11:14)
[2020-10-04] MEDS: FAMOTIDINE 20 MG TABLET PO SCH (11:14)
[2020-10-04] MEDS: ASCORBIC ACID 500 MG TABLET PO SCH (11:14)
[2020-10-04] MEDS: DOCUSATE SODIUM 100 MG CAPSULE PO SCH (11:14)
[2020-10-04] MEDS: AZITHROMYCIN 250 MG TABLET PO SCH (11:14)
[2020-10-04] MEDS: CEFTRIAXONE 1 GM/D5W RTU 1 GM/50 ML RTUPB IV SCH ×2 (11:14→11:21)
[2020-10-04] MEDS: CHOLECALCIFEROL (D3) 1,000 UNIT (25 MCG) TABLET PO SCH (11:14)
[2020-10-04] MEDS: ZINC SULFATE 220 MG CAPSULE PO SCH (11:15)
[2020-10-04] MEDS: DEXAMETHASONE SOD PHOS INJ 10 MG/1 ML VIAL IV SCH (11:15)
[2020-10-04] MEDS: ENOXAPARIN SODIUM INJ 150 MG/1 ML DISP.SYRIN SUBCUT SCH (11:15)
[2020-10-04 11:39] VITALS: BP 130/59
--- NOTE | 2020-10-06 15:02 | PDOC DISCHARGE SUMMARY ---
Impression - Admit/DC Date/PCP Admission Date/Primary Care Provider: 09/29/20 15:52 SHAHRIAR CLIFFORD MD Discharge Date: 10/04/20 - Discharge Diagnosis (1) Acute respiratory failure with hypoxia Is this a current diagnosis for this admission?: Yes (2) Pneumonia due to COVID-19 virus Is this a current diagnosis for this admission?: Yes (3) Obstructive sleep apnea Is this a current diagnosis for this admission?: Yes (4) Tobacco abuse Is this a current diagnosis for this admission?: Yes (5) Morbid obesity Is this a current diagnosis for this admission?: Yes (6) Diabetes Is this a current diagnosis for this admission?: Yes - Additional Information Discharge Diet: Diabetic Discharge Activity: Activity As Tolerated Referrals: JESS LEAVITT JR, MD [NO LOCAL MD] - Follow up as needed Prescriptions: Albuterol Sulfate [Albuterol Sulfate Hfa] 8.5 gm IH Q6 30 Days #1 hfa.aer.[email or web address] Metformin HCl 500 mg PO BID 30 Days #60 tablet Home Medications: Amlodipine Besylate [Norvasc 5 mg Tablet] 5 mg PO DAILY 09/30/20 Albuterol Sulfate [Albuterol Sulfate Hfa] 8.5 gm IH Q6 30 Days #1 hfa.aer.ad 10/04/20 Metformin HCl 500 mg PO BID 30 Days #60 tablet 10/04/20 History of Present Illiness History of Present Illness: YOLIS NOLAN is a 30 year old male past medical history of morbid obesity, tobacco abuse, obstructive sleep apnea presenting to ED complaining of fever, chills, cough, shortness of breath of 1 week duration, possible exposure is his who had COVID-19 2 weeks ago, denies any headache, nausea, vomiting, diarrhea, chest pain, abdominal pain, constipation, loss of smell, loss of taste, or any urinary symptoms. In ED was noted to be hypoxic on room air, with chest x-ray showing patchy bilateral airspace disease consistent with multifocal pneumonia, COVID-19 serology positive. Hospitalist consulted for admission. Hospital Course Hospital Course: (1) Acute respiratory failure with hypoxia Moderate improvement. SPO2 WNL on 2 L nasal cannula. Most likely due to COVID-19 pneumonia. Complaining of shortness of breath, fever and chills on presentation. Noted to be hypoxic on room air on presentation. Chest x-ray positive for multifocal pneumonia. Serology positive for COVID-19. Was a started on supplemental oxygen, duo nebs, as needed BiPAP. Was started on weight-based anticoagulation, incentive spirometry, flutter valve. Received 5 days of IV ceftriaxone. Received 5 days of IV azithromycin. Received 5 days of p.o. dexamethasone. Received doses 2/2 ivermectin. Patient refused convalescent plasma. Was discharged on supplemental oxygen, 2 L nasal cannula. (2) Pneumonia due to COVID-19 virus Plan as per #1. (3) Obstructive sleep apnea Uses home CPAP. Nocturnal CPAP. Weight loss recommended. (4) Tobacco abuse Current daily smoker. Counseled on quitting. NicoDerm patch will be provided. (5) Morbid obesity BMI 54.5. Diet and lifestyle modification recommended. Will obtain TSH. Likely candidate for bariatric intervention. (6) Diabetes New onset diabetes. Hemoglobin A1c 7.6%. Diabetic diet, basal, prandial and sliding scale insulin. Switch to p.o. oral hypoglycemics upon discharge. Diabetic education. Was discharged on Metformin 500 mg p.o. twice daily. Strongly encouraged to follow-up with PCP for readjustment of his medications. Physical Exam Vital Signs: Temp Pulse Resp BP Pulse Ox 97.7 F 84 28 H 130/59 H 96 10/04/20 11:33 10/04/20 11:33 10/04/20 11:33 10/04/20 11:33 10/04/20 11:33 Intake & Output 10/05/20 10/06/20 10/07/20 06:59 06:59 06:59 Weight 183.6 kg General appearance: PRESENT: no acute distress, morbidly obese, well-developed, well-nourished Head exam: PRESENT: atraumatic, normocephalic Neck exam: ABSENT: carotid bruit, JVD, lymphadenopathy, thyromegaly Respiratory exam: PRESENT: clear to auscultation ophelia. ABSENT: rales, rhonchi, wheezes Cardiovascular exam: PRESENT: RRR. ABSENT: diastolic murmur, rubs, systolic murmur GI/Abdominal exam: PRESENT: normal bowel sounds, soft. ABSENT: distended, guarding, mass, organolmegaly, rebound, tenderness Neurological exam: PRESENT: alert, awake, oriented to person, oriented to place, oriented to time, oriented to situation, CN II-XII grossly intact. ABSENT: motor sensory deficit Results Laboratory Results: WBC 5.9 10^3/uL (4.0-10.5) 10/04/20 04:32 RBC 4.96 10^6/uL (4.35-5.55) 10/04/20 04:32 Hgb 15.6 g/dL (13.5-17.0) 10/04/20 04:32 Hct 46.2 % (37.9-51.0) 10/04/20 04:32 MCV 93 fl (80-97) 10/04/20 04:32 MCH 31.4 pg (27.0-33.4) 10/04/20 04:32 MCHC 33.7 g/dL (32.0-36.0) 10/04/20 04:32 RDW 13.3 % (11.5-14.0) 10/04/20 04:32 Plt Count 428 10^3/uL (150-450) 10/04/20 04:32 Lymph % (Auto) 34.5 % (13-45) 10/04/20 04:32 Calloway % (Auto) 14.2 % (3-13) H 10/04/20 04:32 Eos % (Auto) 0.2 % (0-6) 10/04/20 04:32 Baso % (Auto) 1.0 % (0-2) 10/04/20 04:32 Absolute Neuts (auto) 3.0 10^3/uL (1.7-8.2) 10/04/20 04:32 Absolute Lymphs (auto) 2.0 10^3/uL (0.5-4.7) 10/04/20 04:32 Absolute Monos (auto) 0.8 10^3/uL (0.1-1.4) 10/04/20 04:32 Absolute Eos (auto) 0.0 10^3/uL (0.0-0.6) 10/04/20 04:32 Absolute Basos (auto) 0.1 10^3/uL (0.0-0.2) 10/04/20 04:32 Seg Neutrophils % 50.1 % (42-78) 10/04/20 04:32 PT 13.8 SEC (11.4-15.4) 09/29/20 12:56 INR 1.04 09/29/20 12:56 APTT 24.0 SEC (23.5-35.8) 10/03/20 16:50 Fibrinogen 537 mg/dL (209-497) H 10/03/20 16:50 D-Dimer 0.82 ug/mL (0.00-0.50) H 10/03/20 16:50 VBG pH 7.42 (7.30-7.42) 09/29/20 12:56 VBG pCO2 53.9 mmHg (35-63) 09/29/20 12:56 VBG HCO3 33.8 mmol/L (20-32) H 09/29/20 12:56 VBG Base Excess 7.3 mmol/L 09/29/20 12:56 Sodium 138.8 mmol/L (137-145) 10/04/20 04:32 Potassium 4.5 mmol/L (3.6-5.0) 10/04/20 04:32 Chloride 101 mmol/L (98-107) 10/04/20 04:32 Carbon Dioxide 31 mmol/L (22-30) H 10/04/20 04:32 Anion Gap 7 (5-19) 10/04/20 04:32 BUN 13 mg/dL (7-20) 10/04/20 04:32 Creatinine 0.69 mg/dL (0.52-1.25) 10/04/20 04:32 Est GFR ( Amer) > 60 (>60) 10/04/20 04:32 Est GFR (MDRD) Non-Af > 60 (>60) 10/04/20 04:32 Glucose 106 mg/dL (75-110) 10/04/20 04:32 POC Glucose 85 mg/dL (70-110) 10/04/20 08:02 Hemoglobin A1c % 7.6 % (4.7-6.0) H 10/01/20 05:26 Lactic Acid 2.1 mmol/L (0.7-2.1) 09/29/20 21:53 Calcium 8.9 mg/dL (8.4-10.2) 10/04/20 04:32 Ferritin 244.00 ng/mL (17.9-464.0) 09/29/20 12:56 Total Bilirubin 0.6 mg/dL (0.2-1.3) 10/04/20 04:32 Direct Bilirubin 0.3 mg/dL (0.0-0.4) 10/04/20 04:32 Neonat Total Bilirubin Not Reportable 10/04/20 04:32 Neonat Direct Bilirubin Not Reportable 10/04/20 04:32 Neonat Indirect Bili Not Reportable 10/04/20 04:32 AST 79 U/L (17-59) H 10/04/20 04:32 ALT 71 U/L (<50) H 10/04/20 04:32 Alkaline Phosphatase 48 U/L (38-126) 10/04/20 04:32 Lactate Dehydrogenase 464 U/L (120-246) H 09/29/20 12:56 C-Reactive Protein 34.6 mg/L (<10.0) H 09/29/20 12:56 Total Protein 6.7 g/dL (6.3-8.2) 10/04/20 04:32 Albumin 3.4 g/dL (3.5-5.0) L 10/04/20 04:32 Triglycerides 126 mg/dL (<150) 10/02/20 05:58 Cholesterol 137.42 mg/dL (0-200) 10/02/20 05:58 LDL Cholesterol Direct 103 mg/dL (<100) H 10/02/20 05:58 VLDL Cholesterol 25.0 mg/dL (10-31) 10/02/20 05:58 HDL Cholesterol 20 mg/dL (>40) L 10/02/20 05:58 TSH 0.89 uIU/mL (0.47-4.68) 10/01/20 05:26 Urine Color YELLOW 10/03/20 06:00 Urine Appearance CLEAR 10/03/20 06:00 Urine pH 7.0 (5.0-9.0) 10/03/20 06:00 Ur Specific Gilbert 1.016 10/03/20 06:00 Urine Protein 100 mg/dL (NEGATIVE) H 10/03/20 06:00 Urine Glucose (UA) NEGATIVE mg/dL (NEGATIVE) 10/03/20 06:00 Urine Ketones NEGATIVE mg/dL (NEGATIVE) 10/03/20 06:00 Urine Blood NEGATIVE (NEGATIVE) 10/03/20 06:00 Urine Nitrite NEGATIVE (NEGATIVE) 10/03/20 06:00 Urine Nitrite (Reflex) NEGATIVE (NEGATIVE) 09/30/20 13:39 Urine Bilirubin NEGATIVE (NEGATIVE) 10/03/20 06:00 Urine Urobilinogen 2.0 mg/dL (<2.0) H 10/03/20 06:00 Ur Leukocyte Esterase NEGATIVE (NEGATIVE) 10/03/20 06:00 Leukocyte Esterase Rfl NEGATIVE (NEGATIVE) 09/30/20 13:39 Urine WBC (Auto) 0 /HPF 10/03/20 06:00 Urine RBC (Auto) 0 /HPF 10/03/20 06:00 U Hyaline Cast (Auto) 1 /LPF 10/01/20 06:10 Urine WBC (Reflex) 1 /HPF 09/30/20 13:39 Urine Mucus (Auto) RARE /LPF 10/03/20 06:00 Urine Ascorbic Acid 40 (NEGATIVE) H 10/03/20 06:00 Influenza A (RT-PCR) NEGATIVE (NEGATIVE) 09/29/20 13:41 Influenza B (RT-PCR) NEGATIVE (NEGATIVE) 09/29/20 13:41 RSV (RT-PCR) NEGATIVE (NEGATIVE) 09/29/20 13:41 SARS-CoV-2 Rap RNA(RT-PCR) POSITIVE (NEGATIVE) 09/29/20 13:41 Blood Type O POSITIVE 09/29/20 18:30 Antibody Screen NEGATIVE 09/29/20 18:30 Impressions: Chest X-Ray 09/29/20 12:54 IMPRESSION: Patchy bilateral airspace disease consistent with multifocal pneumonia. Findings are suspicious for viral pneumonitis. Stroke Is this a Stroke Patient?: No Acute Heart Failure Is this a Heart Failure Patient?: No
== END 2020-10-04 12:11 | disposition home or self-care (01) | DRG 177 ==
LOC: ER 11:45 → EH 15:37 → UNDOADMIN 15:37 → EH 15:52 → 3N 16:57
PROVIDERS: ADMIT Internal Medicine; ATTEND Internal Medicine
PROC: 5A09357 Assistance with Respiratory Ventilation, Less than 24 Consecutive Hours, Continuous Positive Airway Pressure (ICD-10-PCS; principal; 2020-09-29)
DX: U07.1 COVID-19 (principal); J12.82 Pneumonia due to coronavirus disease 2019; J96.01 Acute respiratory failure with hypoxia; Z68.43 Body mass index [BMI] 50.0-59.9, adult; E11.9 Type 2 diabetes mellitus without complications; I10 Essential (primary) hypertension; F17.210 Nicotine dependence, cigarettes, uncomplicated; G47.33 Obstructive sleep apnea (adult) (pediatric); E66.01 Morbid (severe) obesity due to excess calories; Z99.89 Dependence on other enabling machines and devices; Z87.76 Personal history of (corrected) congenital malformations of integument, limbs and musculoskeletal system; Z79.84 Long term (current) use of oral hypoglycemic drugs; Z79.899 Other long term (current) drug therapy; Z53.29 Procedure and treatment not carried out because of patient's decision for other reasons; Z91.19 Patient's noncompliance with other medical treatment and regimen; Z23 Encounter for immunization
CPT/HCPCS: 36415; 71045; 80053; 80061; 81001; 82728; 82803; 82962; 83036; 83605; 83615; 84443; 85025; 85027; 85379; 85384; 85610; 85730; 86140; 86850; 86900; 86901; 87040; 93005; 93010; 94640; 94660; 94667; 94668; 94799; 96365; 96367; 96375; 99285; 0241U; C9803; J0456; J0696; J1100; J1650; J1815; J3490